=== PATIENT | female | born 1975 | race Caucasian/White ===

== ENCOUNTER 2018-01-24 16:19 | Emergency (ER) | payer SELFPAY ==
[~2018-01-24] VITALS: Ht 167.6 cm; Wt 59.1 kg
[~2018-01-24 16:19] MED LIST: ANTIDEPRESSANT; BACTRIM DS 8001 TAB PO; BENTYL 20MG TAB20 MG PO; CAMPRAL333 MG PO; CELEXA; CELEXA PO; CYMBALTA; DOXYCYCLINE 10100 MG PO; HYDROCODONE/APAP PO; HYDROMORPHONE HC2 MG PO; LEVAQUIN 750MG750 MG PO; METRONIDAZOLE500 MG PO; MIRALAX 255 GM255 GM PO; MOTRIN 800800 MG/TAB PO; NO HOME MEDICATIONS; OXYCONTIN 20MG20 MG PO; PEPCID 20MG TAB20 MG PO; PERCOCET 325 MG1 TA2 PO; PERCOCET 325 MG1 TAB PO; PHENERGAN 25 TA25 MG PO; PHENERGAN12.5 MG/SU RC; PHENERGAN25 MG; PHENERGAN25 MG RC; PHENERGAN25 MG/ML; PRILOSEC40 MG PO; PROMETHAZINE12.5 M5 PO; PROMETHAZINE25 MG RC; RANITIDINE HYD150 MG PO; REGLAN 10MG10 MG/TAB PO; ROXICODONE15 MG PO; SOME ANTIBIOTIC; ULTRAM 50MG TAB50 MG PO; XANAX0.5 MG PO; XARELTO10 MG PO; ZANTAC; ZANTAC 150150 MG PO; ZANTAC 7575 MG PO; ZOFRAN 4MG T4 MG/TAB PO; ZOFRAN 8MG8 MG PO; ZOFRAN ODT4 MG PO; [UNRECOGNIZED DRUG - REMARK]
[2018-01-24 16:22] VITALS: TEMP 97.9
[2018-01-24 17:11] LABS: BASO % 0.4 % (0.0-2.0); EOS # 0.1 (0.0-0.7); EOS % 0.7 % (0-4.0); GRAN # 6.7 (1.4-6.5); GRAN % 80.1 % (42.2-75.2); HEMOGLOBIN 11.4 g/dl (12.5-16.0); LYMPH # 1.1 (1.2-3.4); MEAN CELL VOLUME 85 fl (80.0-100.0); MEAN CORPUSCULAR HEMOGLOBIN 29 pg (27.0-31.0); MEAN CORPUSCULAR HGB CONC 34 g/dl (33.0-37.0); MEAN PLATELET VOLUME 9.2 fl (7.4-10.4); MONO # 0.4 (0.1-0.6); MONO % 4.8 % (1.7-9.3); PLATELET COUNT 237 K/mm3 (130-400); RED BLOOD COUNT 3.98 M/mm3 (4.10-5.30); REDCELL DISTRIBUTION WIDTH-CV 14.3 % (11.5-14.5)
[2018-01-24 17:18] LABS: ACETAMINOPHEN < 10 ug/mL (10-30); ALCOHOL(ethanol),MEDICAL < 10 mg/dL; SALICYLATE < 1.0 mg/dL
[2018-01-24 17:35] LABS: TRICYCLIC ANTIDEPRESS URINE NEGATIVE
[2018-01-24 18:09] LABS: ALBUMIN 3.9 gm/dL (3.5-5.0); BILIRUBIN,TOTAL 0.5 mg/dL (0.0-1.0); CALCIUM 9.5 mg/dL (8.4-10.2); CREATININE, serum 0.66 mg/dL (0.52-1.25); POTASSIUM 3.9 mmol/L (3.4-5.0); TOTAL PROTEIN 7.7 gm/dL (6.4-8.2)
[2018-01-24 18:58] VITALS: BP 117/89; PULSE 88
== END 2018-01-24 19:15 | disposition home or self-care (01) ==
LOC: COL.ER 16:19
PROVIDERS: Emergency Medicine
DX: T40.2X1A Poisoning by other opioids, accidental (unintentional), initial encounter (principal); F17.210 Nicotine dependence, cigarettes, uncomplicated
CPT/HCPCS: J1885; J2405; J7030

== ENCOUNTER 2018-03-10 20:36 | Emergency (ER) | payer SELFPAY ==
[~2018-03-10] VITALS: Ht 165.1 cm; Wt 63.6 kg
[2018-03-10 20:38] VITALS: BP 116/75; PULSE 104; TEMP 99.6
[2018-03-10] MEDS ORDERED: DOXYCYCLINE 10100 MG PO (21:20)
[2018-03-10] MEDS ORDERED: CEPHALEXIN500 M1 PO (21:20)
== END 2018-03-10 22:00 | disposition home or self-care (01) ==
LOC: COL.ER 20:36
DX: L03.116 Cellulitis of left lower limb (principal)

== ENCOUNTER 2019-12-17 13:09 | Emergency (ER) | payer SELFPAY ==
[~2019-12-17] VITALS: Ht 165.1 cm; Wt 63.6 kg
[~2019-12-17 13:09] MED LIST changes: +CEPHALEXIN500 M1 PO; +PROTONIX 40MG T40 MG PO
[2019-12-17 13:22] VITALS: BP 131/90
[2019-12-17 15:38] VITALS: PULSE 92; TEMP 97.8
== END 2019-12-17 15:40 | disposition home or self-care (01) ==
LOC: COL.ER 13:09
DX: S62.001A Unspecified fracture of navicular [scaphoid] bone of right wrist, initial encounter for closed fracture (principal); W01.0XXA Fall on same level from slipping, tripping and stumbling without subsequent striking against object, initial encounter; Y92.009 Unspecified place in unspecified non-institutional (private) residence as the place of occurrence of the external cause
CPT/HCPCS: Q4021

== ENCOUNTER 2021-02-14 11:35 | Emergency (ER) | payer SELFPAY ==
[~2021-02-14] VITALS: Ht 165.1 cm; Wt 72.7 kg
[2021-02-14 12:52] LABS: COLLECTION METHOD CLEAN CATCH
[2021-02-14 13:01] LABS: AMORPHOUS CRYSTAL Present /uL; MUCOUS Present /lpf; PH 5 (5-8); URINE APPEARANCE Cloudy; URINE BACTERIA None Seen /hpf; URINE BILIRUBIN Negative (NEGATIVE); URINE BLOOD Negative (NEGATIVE); URINE COLOR Amber; URINE GLUCOSE Negative (NEGATIVE); URINE KETONE Trace (NEGATIVE); URINE LEUKOCYTE ESTERASE Negative (NEGATIVE); URINE NITRATE Negative (NEGATIVE); URINE PROTEIN(semi-quant) 2+ (NEGATIVE); URINE UROBILINOGEN Negative (NEGATIVE)
[2021-02-14 13:32] LABS: BASO % 0.3 % (0.0-2.0); GRAN % 81.1 % (42.2-75.2); HEMATOCRIT 47.9 % (37.0-47.0); HEMOGLOBIN 16.3 g/dl (12.5-16.0); LYMPH # 1.6 (1.2-3.4); LYMPH % 10.8 % (20.0-51.0); MEAN CELL VOLUME 85 fl (80.0-100.0); MEAN CORPUSCULAR HEMOGLOBIN 29 pg (27.0-31.0); MEAN CORPUSCULAR HGB CONC 34 g/dl (33.0-37.0); MEAN PLATELET VOLUME 9.2 fl (7.4-10.4); MONO # 1.1 (0.1-0.6); MONO % 7.3 % (1.7-9.3); PLATELET COUNT 461 K/mm3 (130-400); RED BLOOD COUNT 5.67 M/mm3 (4.10-5.30); REDCELL DISTRIBUTION WIDTH-CV 14.5 % (11.5-14.5)
[2021-02-14 14:31] LABS: ALBUMIN 4.4 gm/dL (3.5-5.0); BILIRUBIN,TOTAL 0.5 mg/dL (0.0-1.0); CALCIUM 9.7 mg/dL (8.4-10.2); CREATININE, serum 0.71 (0.52-1.25); POTASSIUM 3.8 mmol/L (3.4-5.0); TOTAL PROTEIN 8.4 gm/dL (6.4-8.2)
[2021-02-14] MEDS ORDERED: AMOXICILLIN 8751 TAB PO (17:13)
[2021-02-14] MEDS ORDERED: ZOFRAN ODT4 MG PO (17:14)
[2021-02-14] MEDS ORDERED: NORCO 325 MG-51 TAB PO (17:14)
[2021-02-14 17:39] VITALS: BP 173/108; PULSE 64; TEMP 100.1
== END 2021-02-14 15:10 | disposition home or self-care (01) ==
LOC: COL.ER 11:35
PROVIDERS: Emergency Medicine
DX: K52.9 Noninfective gastroenteritis and colitis, unspecified (principal); D72.829 Elevated white blood cell count, unspecified; Z20.822 Contact with and (suspected) exposure to COVID-19; Z32.02 Encounter for pregnancy test, result negative
CPT/HCPCS: J1885; J2405; J3010; J7120; Q9967

== ENCOUNTER 2021-02-22 13:04 | Emergency (ER) | payer SELFPAY ==
[~2021-02-22] VITALS: Ht 167.6 cm; Wt 77.3 kg
[~2021-02-22 13:04] MED LIST changes: +AMOXICILLIN 8751 TAB PO; +NORCO 325 MG-51 TAB PO
[2021-02-22 13:20] VITALS: TEMP 98.7
[2021-02-22 14:56] LABS: BASO % 0.3 % (0.0-2.0); EOS % 0.1 % (0-4.0); GRAN % 82.3 % (42.2-75.2); HEMATOCRIT 47.5 % (37.0-47.0); HEMOGLOBIN 15.7 g/dl (12.5-16.0); LYMPH # 1.4 (1.2-3.4); MEAN CELL VOLUME 87 fl (80.0-100.0); MEAN CORPUSCULAR HEMOGLOBIN 29 pg (27.0-31.0); MEAN CORPUSCULAR HGB CONC 33 g/dl (33.0-37.0); MEAN PLATELET VOLUME 9.4 fl (7.4-10.4); MONO # 0.4 (0.1-0.6); MONO % 3.9 % (1.7-9.3); PLATELET COUNT 327 K/mm3 (130-400); RED BLOOD COUNT 5.48 M/mm3 (4.10-5.30); REDCELL DISTRIBUTION WIDTH-CV 14.2 % (11.5-14.5)
[2021-02-22 15:06] LABS: ALBUMIN 4.7 gm/dL (3.5-5.0); BILIRUBIN,TOTAL 0.5 mg/dL (0.0-1.0); CREATININE, serum 0.58 (0.52-1.25)
[2021-02-22] MEDS ORDERED: PERCOCET 325 MG1 TA2 PO (17:19)
[2021-02-22] MEDS ORDERED: PROTONIX 40MG T40 MG PO (17:19)
[2021-02-22] MEDS ORDERED: ZOFRAN ODT4 MG PO (17:19)
[2021-02-22 17:40] VITALS: BP 141/96; PULSE 91
== END 2021-02-22 17:45 | disposition home or self-care (01) ==
LOC: COL.ER 13:04
PROVIDERS: Personal Emergency Response Attendant
DX: R10.84 Generalized abdominal pain (principal); R11.2 Nausea with vomiting, unspecified; Z32.02 Encounter for pregnancy test, result negative
CPT/HCPCS: C9113; J1790; J2270; J2405; J2550; J7030

== ENCOUNTER 2022-01-19 11:06 | Observation (INO) | payer SELFPAY ==
[~2022-01-19] VITALS: Ht 165.1 cm; Wt 79.5 kg
[2022-01-19 12:30] LABS: BASO # 0.1 K/mm3 (0.0-0.2); BASO % 0.7 % (0.0-2.0); EOS % 0.1 % (0.0-4.0); GRAN # 5.8 K/mm3 (1.4-6.5); GRAN % 77.3 % (42.2-75.2); HEMATOCRIT 43.9 % (37.0-47.0); HEMOGLOBIN 15.3 g/dl (12.5-16.0); LYMPH # 1.3 K/mm3 (1.2-3.4); LYMPH % 17.1 % (20.0-51.0); MEAN CELL VOLUME 87 fl (80.0-100.0); MEAN CORPUSCULAR HEMOGLOBIN 30 pg (27-31); MEAN CORPUSCULAR HGB CONC 35 g/dl (33.0-37.0); MEAN PLATELET VOLUME 9.4 fl (7.4-10.4); MONO # 0.3 K/mm3 (0.1-0.6); MONO % 4.4 % (1.7-9.3); PLATELET COUNT 292 K/mm3 (130-400); RED BLOOD COUNT 5.05 M/mm3 (4.10-5.30); REDCELL DISTRIBUTION WIDTH-CV 14.2 % (11.5-14.5)
[2022-01-19 12:49] LABS: ALBUMIN 4.4 gm/dL (3.5-5.0); C-REACTIVE PROTEIN 0.54 mg/dL (0.00-0.50); CALCIUM 9.9 mg/dL (8.4-10.2); CREATININE, serum 0.83 mg/dL (0.57-1.11); POTASSIUM 3.5 mmol/L (3.5-4.5); TOTAL PROTEIN 9.2 gm/dL (6.2-8.1)
[2022-01-19 15:56] LABS: COLLECTION METHOD CLEAN CATCH
[2022-01-19 16:03] LABS: MUCOUS Present (NOT PRESENT); PH 8 (5-8); SQUAMOUS EPITHELIAL 0-2 /hpf (0-10); URINE APPEARANCE Clear (CLEAR/HAZY); URINE BACTERIA None Seen /hpf (NONE SEEN); URINE BILIRUBIN Negative (NEGATIVE); URINE BLOOD Negative (NEGATIVE); URINE COLOR Yellow (YELLOW); URINE GLUCOSE Negative (NEGATIVE); URINE KETONE 1+ (NEGATIVE); URINE LEUKOCYTE ESTERASE Negative (NEGATIVE); URINE NITRATE Negative (NEGATIVE); URINE PROTEIN(semi-quant) Negative (NEGATIVE); URINE RBC 0-2 /hpf (0-2); URINE UROBILINOGEN Negative (NEGATIVE)
[2022-01-19 16:18] LABS: TRICYCLIC ANTIDEPRESS URINE NEGATIVE
[2022-01-19 16:33] VITALS: BP 133/93; PULSE 101; TEMP 100.4
--- NOTE | 2022-01-19 18:55 | NUR ---
Patient admitted to room 353 from ED. Report recieved from CHRISTIANO Arora. Medication, pharmacy, and allergies reviewed. Fluids running as ordered. Patient c/o of abd pain but states that she is unsure if she can tolerate po medication. PRN zofran given. Patient hypertensive and tachy, will give prn BP medication per protocol. Night nurse aware. Call light in reach.
[2022-01-19 20:13] VITALS: BP 142/96; PULSE 99; TEMP 98.9
[2022-01-19 23:58] VITALS: BP 153/86; PULSE 90; TEMP 99.1
[2022-01-20 04:42] VITALS: BP 149/89; PULSE 84; TEMP 98.7
[2022-01-20 06:49] LABS: BASO % 0.3 % (0.0-2.0); GRAN # 9.7 K/mm3 (1.4-6.5); GRAN % 77.7 % (42.2-75.2); LYMPH # 1.8 K/mm3 (1.2-3.4); LYMPH % 14.2 % (20.0-51.0); MEAN CELL VOLUME 87 fl (80.0-100.0); MEAN CORPUSCULAR HGB CONC 35 g/dl (33.0-37.0); MEAN PLATELET VOLUME 9.3 fl (7.4-10.4); MONO # 0.9 K/mm3 (0.1-0.6); MONO % 7.4 % (1.7-9.3); PLATELET COUNT 307 K/mm3 (130-400); RED BLOOD COUNT 4.22 M/mm3 (4.10-5.30); REDCELL DISTRIBUTION WIDTH-CV 14.4 % (11.5-14.5)
[2022-01-20 06:53] LABS: HEMATOCRIT 36.8 % (37.0-47.0); HEMOGLOBIN 12.7 g/dl (12.5-16.0); MEAN CORPUSCULAR HEMOGLOBIN 30 pg (27-31)
[2022-01-20 07:10] LABS: CALCIUM 8.7 mg/dL (8.4-10.2); CREATININE, serum 0.7 mg/dL (0.57-1.11); MAGNESIUM 1.7 mg/dL (1.6-2.6)
[2022-01-20 07:13] LABS: POTASSIUM 2.9 mmol/L (3.5-4.5)
[2022-01-20 08:13] VITALS: BP 132/78; PULSE 94; TEMP 98.4
--- NOTE | 2022-01-20 10:39 | NUR ---
PT RESTING IN BED. MORNING MEDICATIONS GIVEN. SHIFT ASSESSMENT COMPLETED. PT REPORTS ABDOMINAL PAIN AND HEADACHE HAVE BOTH IMPROVED. WILL ADVANCE DIET TOLERATED. CONTINUING TO MONITOR.
[2022-01-20 12:14] VITALS: BP 124/79; PULSE 96; TEMP 98.4
--- NOTE | 2022-01-20 12:16 | NUR ---
Jordyn: No congregational preference Situation: Mandarin Chinese Teacher stopped by room on rounds Background: PT seemed content Assessment: PT appreciated visit Recommendation: Mandarin Chinese Teacher will follow up as needed
--- NOTE | 2022-01-20 14:39 | NUR ---
kiln worker met with patient to complete intake and discuss discharge plan. Patient reports that she lives at home with her friend Maxx ([phone]). Patient reports to being fully independent with her ADL's and does not utilize any DME or home oxygen. Patient reports to not having a PCP at this time. She utilizes [facility] for perscription needs and has trouble affording her medications. Patient states that she does not have a DPOA-HC. Education provided. Patient is not but does have 3 adult children : Nils Bautista, Ally Erickson ([phone]) and Cuba Ruiz. States Ally is the best contact. Patient is not currently seeking drug and alcohol treatment. 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 Local drug and alcohol resource list provided to the patient and educated her on the local AA options. Patient states that she did get an FAA at the time of admission and would like to apply for [facility]. Contact made with Lorraine financial counselor who states she will meet with the patient later today. Discharge plan: Home
[2022-01-20 16:23] VITALS: BP 107/71; PULSE 98; TEMP 98.5
[2022-01-20 20:12] VITALS: BP 105/73; PULSE 101; TEMP 98.5
[2022-01-21 00:23] VITALS: BP 117/77; PULSE 80; TEMP 98.3
[2022-01-21 04:10] VITALS: BP 119/74; PULSE 69; TEMP 98.3
--- NOTE | 2022-01-21 05:35 | NUR ---
RESTED THROUGH THE NIGHT WITHOUT INCIDENT. ANTICAPTES DC TODAY. NEEDS MET.
[2022-01-21 06:31] LABS: BASO # 0.1 K/mm3 (0.0-0.2); BASO % 1.2 % (0.0-2.0); EOS # 0.1 K/mm3 (0.0-0.7); EOS % 0.9 % (0.0-4.0); GRAN # 3.4 K/mm3 (1.4-6.5); GRAN % 49.7 % (42.2-75.2); HEMOGLOBIN 11.7 g/dl (12.5-16.0); LYMPH # 2.7 K/mm3 (1.2-3.4); LYMPH % 39.1 % (20.0-51.0); MEAN CELL VOLUME 91 fl (80.0-100.0); MEAN CORPUSCULAR HEMOGLOBIN 30 pg (27-31); MEAN CORPUSCULAR HGB CONC 33 g/dl (33.0-37.0); MEAN PLATELET VOLUME 9.4 fl (7.4-10.4); MONO # 0.6 K/mm3 (0.1-0.6); MONO % 8.5 % (1.7-9.3); PLATELET COUNT 267 K/mm3 (130-400); RED BLOOD COUNT 3.88 M/mm3 (4.10-5.30); REDCELL DISTRIBUTION WIDTH-CV 14.7 % (11.5-14.5)
[2022-01-21 06:38] LABS: HEMATOCRIT 35.4 % (37.0-47.0)
[2022-01-21 06:48] LABS: CALCIUM 8.7 mg/dL (8.4-10.2); CREATININE, serum 0.72 mg/dL (0.57-1.11); POTASSIUM 3.6 mmol/L (3.5-4.5)
[2022-01-21 06:58] LABS: MAGNESIUM 2.2 mg/dL (1.6-2.6)
[2022-01-21 07:22] VITALS: BP 142/80; PULSE 85; TEMP 98.2
--- NOTE | 2022-01-21 08:38 | NUR ---
PT SITTING UP IN BED, TOLERATED BREAKFAST WELL WITH NO NAUSEA. MORNING MEDICATIONS GIVEN. SHIFT ASSESSMENT COMPLETED. PT COMPLAINS OF ONLY MILD ABDOMINAL PAIN. SWELLING NOTED TO RUE, BELIEVE IT IS DUE TO IVF, INSTRUCTED TO KEEP ARM ELEVATED AND WE WILL MONITOR. IV SITE DOES NOT APPEAR INFILTRATED. WILL CONTINUE TO MONITOR.
[2022-01-21] MEDS ORDERED: ZESTRIL 10MG10 MG PO (09:45)
--- NOTE | 2022-01-21 10:14 | NUR ---
Appeals Manager met with patient who will discharge home today. SW offered to make patient an appointment with the [facility], however she declined. Patient was interested in [facility] contact information so LALO provided. Discharge Plan: Home
--- NOTE | 2022-01-21 10:28 | NUR ---
IV D/C. DISCHARGE INSTRUCTIONS GIVEN, ALL QUSTIONS ANSWERED. WILL ESCORT PT DOWN WITH PERSONAL BELONGINGS. WILL D/C FROM SYSTEM.
== END 2022-01-21 10:29 | disposition home or self-care (01) ==
LOC: COL.ER 11:06 → MEDICAL 16:02 → COL.ER 16:20 → MEDICAL 16:20
PROVIDERS: Family Medicine; Physician Assistant; ADMIT Internal Medicine
DX: R10.84 Generalized abdominal pain (principal); R11.2 Nausea with vomiting, unspecified; E87.6 Hypokalemia; E83.42 Hypomagnesemia; I16.0 Hypertensive urgency; R51.9 Headache, unspecified; F10.10 Alcohol abuse, uncomplicated; Z20.822 Contact with and (suspected) exposure to COVID-19
CPT/HCPCS: 99233-AI; 99239; C9113; G0378; J0360; J0780; J1200; J1956; J2270; J2405; J2550; J2765; J3475; J7030; J7120; Q9967

== ENCOUNTER 2022-01-27 13:34 | Emergency (ER) | payer SELFPAY ==
[~2022-01-27] VITALS: Ht 165.1 cm; Wt 79.5 kg
[~2022-01-27 13:34] MED LIST changes: +ZESTRIL 10MG10 MG PO
[2022-01-27 14:00] VITALS: PULSE 101; TEMP 98.2
[2022-01-27 15:48] LABS: BASO % 0.5 % (0.0-2.0); EOS % 0.1 % (0.0-4.0); GRAN # 6.8 K/mm3 (1.4-6.5); GRAN % 77.2 % (42.2-75.2); HEMATOCRIT 44.5 % (37.0-47.0); HEMOGLOBIN 15.3 g/dl (12.5-16.0); LYMPH # 1.4 K/mm3 (1.2-3.4); LYMPH % 15.6 % (20.0-51.0); MEAN CELL VOLUME 87 fl (80.0-100.0); MEAN CORPUSCULAR HEMOGLOBIN 30 pg (27-31); MEAN CORPUSCULAR HGB CONC 34 g/dl (33.0-37.0); MEAN PLATELET VOLUME 9.1 fl (7.4-10.4); MONO # 0.5 K/mm3 (0.1-0.6); MONO % 5.8 % (1.7-9.3); PLATELET COUNT 353 K/mm3 (130-400); RED BLOOD COUNT 5.11 M/mm3 (4.10-5.30); REDCELL DISTRIBUTION WIDTH-CV 13.9 % (11.5-14.5)
[2022-01-27 16:05] LABS: ALANINE AMINOTRANSFERASE 21 U/L (0-55); ALBUMIN 4.3 gm/dL (3.5-5.0); ALKALINE PHOSPHATASE 92 U/L (40-150); ANION GAP 14 mmol/L (7-16); AST,SGOT 20 U/L (5-34); BILIRUBIN,TOTAL 0.3 mg/dL (0.2-1.2); BLOOD UREA NITROGEN 5 mg/dL (7-19); CALCIUM 10.1 mg/dL (8.4-10.2); CARBON DIOXIDE 24 mmol/L (22-29); CHLORIDE 105 mmol/L (98-107); CREATININE, serum 0.78 mg/dL (0.57-1.11); GLUCOSE 113 mg/dL (70-99); LIPASE 25 U/L (8-78); SODIUM 143 mmol/L (136-145); TOTAL PROTEIN 8.9 gm/dL (6.2-8.1)
[2022-01-27 16:16] LABS: TROPONIN-I < 0.010 ng/mL (0.00-0.033)
[2022-01-27] MEDS ORDERED: ZESTRIL 10MG10 MG PO (16:47)
[2022-01-27 16:53] VITALS: BP 134/92
== END 2022-01-27 17:00 | disposition home or self-care (01) ==
LOC: COL.ER 13:34
PROVIDERS: Nurse Practitioner Primary Care
DX: I10 Essential (primary) hypertension (principal); R11.2 Nausea with vomiting, unspecified; Z20.822 Contact with and (suspected) exposure to COVID-19
CPT/HCPCS: J0595; J2405; J7030

== ENCOUNTER 2022-01-30 09:40 | Emergency (ER) | payer SELFPAY ==
[~2022-01-30] VITALS: Ht 165.1 cm; Wt 75.0 kg
[2022-01-30 09:48] VITALS: TEMP 98.1
[2022-01-30 11:37] LABS: BASO # 0.1 K/mm3 (0.0-0.2); BASO % 0.4 % (0.0-2.0); EOS % 0.1 % (0.0-4.0); GRAN % 72.4 % (42.2-75.2); HEMATOCRIT 42.1 % (37.0-47.0); HEMOGLOBIN 14.5 g/dl (12.5-16.0); LYMPH # 2.1 K/mm3 (1.2-3.4); MEAN CELL VOLUME 87 fl (80.0-100.0); MEAN CORPUSCULAR HEMOGLOBIN 30 pg (27-31); MEAN CORPUSCULAR HGB CONC 34 g/dl (33.0-37.0); MONO # 1.2 K/mm3 (0.1-0.6); MONO % 9.5 % (1.7-9.3); PLATELET COUNT 394 K/mm3 (130-400); RED BLOOD COUNT 4.84 M/mm3 (4.10-5.30); REDCELL DISTRIBUTION WIDTH-CV 13.7 % (11.5-14.5)
[2022-01-30 11:59] LABS: ALANINE AMINOTRANSFERASE 21 U/L (0-55); ALBUMIN 4.1 gm/dL (3.5-5.0); ALKALINE PHOSPHATASE 81 U/L (40-150); AST,SGOT 26 U/L (5-34); BILIRUBIN,TOTAL 0.6 mg/dL (0.2-1.2); BLOOD UREA NITROGEN 16 mg/dL (7-19); CALCIUM 9.7 mg/dL (8.4-10.2); CARBON DIOXIDE 25 mmol/L (22-29); GLUCOSE 111 mg/dL (70-99); LIPASE 22 U/L (8-78); TOTAL PROTEIN 8.4 gm/dL (6.2-8.1)
[2022-01-30 12:10] LABS: ANION GAP 17 mmol/L (7-16); CHLORIDE 98 mmol/L (98-107); SODIUM 140 mmol/L (136-145)
[2022-01-30 12:27] LABS: ALCOHOL(ethanol),MEDICAL < 10 mg/dL (0-10)
[2022-01-30 14:00] VITALS: BP 102/85; PULSE 101
[2022-01-30] MEDS ORDERED: K-TAB20 PO (14:17)
[2022-01-30] MEDS ORDERED: PHENERGAN 25 TA25 MG PO (14:17)
[2022-01-30] MEDS ORDERED: PHENERGAN25 MG RC (14:17)
== END 2022-01-30 14:41 | disposition home or self-care (01) ==
LOC: COL.ER 09:40
PROVIDERS: Emergency Medicine
DX: R11.2 Nausea with vomiting, unspecified (principal); R10.84 Generalized abdominal pain; E87.6 Hypokalemia; F12.90 Cannabis use, unspecified, uncomplicated; D72.829 Elevated white blood cell count, unspecified; Z87.19 Personal history of other diseases of the digestive system
CPT/HCPCS: J0780; J1790; J1885; J3010; J3475; J7030

== ENCOUNTER 2022-02-01 12:53 | Emergency (ER) | payer SELFPAY ==
[~2022-02-01] VITALS: Ht 165 cm; Wt 72.7 kg
[~2022-02-01 12:53] MED LIST changes: +K-TAB20 PO
[2022-02-01 13:02] VITALS: TEMP 98.1
[2022-02-01 13:55] LABS: BASO # 0.1 K/mm3 (0.0-0.2); BASO % 0.5 % (0.0-2.0); EOS % 0.1 % (0.0-4.0); GRAN # 10.7 K/mm3 (1.4-6.5); GRAN % 75.7 % (42.2-75.2); HEMATOCRIT 45.1 % (37.0-47.0); HEMOGLOBIN 15.9 g/dl (12.5-16.0); LYMPH # 2.3 K/mm3 (1.2-3.4); LYMPH % 16.2 % (20.0-51.0); MEAN CELL VOLUME 85 fl (80.0-100.0); MEAN CORPUSCULAR HEMOGLOBIN 30 pg (27-31); MEAN CORPUSCULAR HGB CONC 35 g/dl (33.0-37.0); MEAN PLATELET VOLUME 9.5 fl (7.4-10.4); PLATELET COUNT 423 K/mm3 (130-400); REDCELL DISTRIBUTION WIDTH-CV 13.5 % (11.5-14.5)
[2022-02-01 14:11] LABS: ALBUMIN 4.5 gm/dL (3.5-5.0); BILIRUBIN,TOTAL 1.1 mg/dL (0.2-1.2); C-REACTIVE PROTEIN 0.84 mg/dL (0.00-0.50); CALCIUM 10.3 mg/dL (8.4-10.2); CREATININE, serum 0.88 mg/dL (0.57-1.11); POTASSIUM 3.2 mmol/L (3.5-4.5); TOTAL PROTEIN 9.2 gm/dL (6.2-8.1)
[2022-02-01 15:57] LABS: COLLECTION METHOD CLEAN CATCH
[2022-02-01 16:03] VITALS: BP 122/93
[2022-02-01 16:04] LABS: MUCOUS Present (NOT PRESENT); PH 5 (5-8); URINE APPEARANCE Hazy (CLEAR/HAZY); URINE BACTERIA None Seen /hpf (NONE SEEN); URINE BILIRUBIN Negative (NEGATIVE); URINE BLOOD Negative (NEGATIVE); URINE COLOR Amber (YELLOW); URINE GLUCOSE Negative (NEGATIVE); URINE KETONE 1+ (NEGATIVE); URINE LEUKOCYTE ESTERASE Negative (NEGATIVE); URINE NITRATE Negative (NEGATIVE); URINE PROTEIN(semi-quant) 1+ (NEGATIVE); URINE UROBILINOGEN >=4.0 (NEGATIVE)
[2022-02-01 16:28] VITALS: PULSE 96
[2022-02-01] MEDS ORDERED: ZOFRAN ODT4 MG PO (16:41)
[2022-02-01] MEDS ORDERED: NORCO 325 MG-51 TAB PO (16:41)
== END 2022-02-01 17:00 | disposition home or self-care (01) ==
LOC: COL.ER 12:53
PROVIDERS: Nurse Practitioner
DX: R10.11 Right upper quadrant pain (principal); R10.12 Left upper quadrant pain; D72.829 Elevated white blood cell count, unspecified
CPT/HCPCS: J1790; J1885; J2550; J3010; J7030

== ENCOUNTER 2022-02-02 18:38 | Emergency (ER) | payer SELFPAY ==
[~2022-02-02] VITALS: Ht 165.1 cm; Wt 71.8 kg
[2022-02-02 18:49] VITALS: TEMP 98.1
[2022-02-02 19:48] LABS: BASO # 0.1 K/mm3 (0.0-0.2); BASO % 0.6 % (0.0-2.0); EOS % 0.1 % (0.0-4.0); GRAN # 10.7 K/mm3 (1.4-6.5); GRAN % 77.8 % (42.2-75.2); HEMATOCRIT 42.9 % (37.0-47.0); HEMOGLOBIN 15.4 g/dl (12.5-16.0); LYMPH % 14.4 % (20.0-51.0); MEAN CELL VOLUME 84 fl (80.0-100.0); MEAN CORPUSCULAR HEMOGLOBIN 30 pg (27-31); MEAN CORPUSCULAR HGB CONC 36 g/dl (33.0-37.0); MEAN PLATELET VOLUME 10.7 fl (7.4-10.4); MONO # 0.9 K/mm3 (0.1-0.6); MONO % 6.5 % (1.7-9.3); PLATELET COUNT 480 K/mm3 (130-400); RED BLOOD COUNT 5.13 M/mm3 (4.10-5.30); REDCELL DISTRIBUTION WIDTH-CV 13.5 % (11.5-14.5)
[2022-02-02 21:48] LABS: ALBUMIN 3.9 gm/dL (3.5-5.0); BILIRUBIN,TOTAL 0.9 mg/dL (0.2-1.2); CALCIUM 9.3 mg/dL (8.4-10.2); CREATININE, serum 0.78 mg/dL (0.57-1.11); TOTAL PROTEIN 7.9 gm/dL (6.2-8.1)
[2022-02-03] MEDS ORDERED: CIPRO 500MG TA500 MG PO (00:04)
[2022-02-03 00:42] VITALS: BP 130/97; PULSE 105
== END 2022-02-03 00:42 | disposition home or self-care (01) ==
LOC: COL.ER 18:38
PROVIDERS: Personal Emergency Response Attendant; Physician Assistant
DX: K52.9 Noninfective gastroenteritis and colitis, unspecified (principal); G89.29 Other chronic pain; Z86.59 Personal history of other mental and behavioral disorders
CPT/HCPCS: J0500; J1790; J1885; J2060; J2550; J7030; Q9967

== ENCOUNTER 2022-02-25 09:51 | Emergency (ER) | payer SELFPAY ==
[~2022-02-25] VITALS: Ht 165.1 cm; Wt 75.0 kg
[~2022-02-25 09:51] MED LIST changes: +ATIVAN 0.50.5 MG/TAB PO; +CIPRO 500MG TA500 MG PO
[2022-02-25 10:09] VITALS: TEMP 97.9
[2022-02-25 11:37] LABS: COLLECTION METHOD CLEAN CATCH
[2022-02-25 11:55] LABS: BASO % 0.4 % (0.0-2.0); EOS # 0.1 K/mm3 (0.0-0.7); EOS % 0.7 % (0.0-4.0); GRAN # 5.6 K/mm3 (1.4-6.5); HEMATOCRIT 48.5 % (37.0-47.0); HEMOGLOBIN 16.3 g/dl (12.5-16.0); LYMPH # 1.8 K/mm3 (1.2-3.4); LYMPH % 22.3 % (20.0-51.0); MEAN CELL VOLUME 88 fl (80.0-100.0); MEAN CORPUSCULAR HEMOGLOBIN 30 pg (27-31); MEAN CORPUSCULAR HGB CONC 34 g/dl (33.0-37.0); MEAN PLATELET VOLUME 9.3 fl (7.4-10.4); MONO # 0.5 K/mm3 (0.1-0.6); MONO % 6.1 % (1.7-9.3); PLATELET COUNT 289 K/mm3 (130-400); RED BLOOD COUNT 5.51 M/mm3 (4.10-5.30); REDCELL DISTRIBUTION WIDTH-CV 13.8 % (11.5-14.5)
[2022-02-25 12:03] LABS: MUCOUS Present (NOT PRESENT); URINE BACTERIA None Seen /hpf (NONE SEEN); URINE RBC 0-2 /hpf (0-2)
[2022-02-25 12:07] LABS: TRICYCLIC ANTIDEPRESS URINE NEGATIVE
[2022-02-25 12:08] LABS: ALANINE AMINOTRANSFERASE 21 U/L (0-55); ALKALINE PHOSPHATASE 84 U/L (40-150); ANION GAP 16 mmol/L (7-16); AST,SGOT 17 U/L (5-34); BILIRUBIN,TOTAL 0.4 mg/dL (0.2-1.2); BLOOD UREA NITROGEN 6 mg/dL (7-19); CALCIUM 10.2 mg/dL (8.4-10.2); CARBON DIOXIDE 23 mmol/L (22-29); CHLORIDE 103 mmol/L (98-107); CREATININE, serum 0.76 mg/dL (0.57-1.11); GLUCOSE 98 mg/dL (70-99); LIPASE 22 U/L (8-78); SODIUM 142 mmol/L (136-145); TOTAL PROTEIN 8.3 gm/dL (6.2-8.1)
[2022-02-25 12:09] LABS: PH 9 (5-8); URINE APPEARANCE Hazy (CLEAR/HAZY); URINE BILIRUBIN Negative (NEGATIVE); URINE BLOOD Negative (NEGATIVE); URINE COLOR Yellow (YELLOW); URINE GLUCOSE Negative (NEGATIVE); URINE KETONE Negative (NEGATIVE); URINE LEUKOCYTE ESTERASE Negative (NEGATIVE); URINE NITRATE Negative (NEGATIVE); URINE PROTEIN(semi-quant) Negative (NEGATIVE); URINE UROBILINOGEN Negative (NEGATIVE)
[2022-02-25 12:12] LABS: ALCOHOL(ethanol),MEDICAL < 10 mg/dL (0-10)
[2022-02-25] MEDS ORDERED: ZOFRAN ODT4 MG PO (14:34)
[2022-02-25 14:59] VITALS: BP 121/91; PULSE 88
== END 2022-02-25 15:01 | disposition home or self-care (01) ==
LOC: COL.ER 09:51
PROVIDERS: Emergency Medicine
DX: R10.84 Generalized abdominal pain (principal); R11.2 Nausea with vomiting, unspecified; Z32.02 Encounter for pregnancy test, result negative
CPT/HCPCS: J1200; J1790; J1885; J2550

== ENCOUNTER 2022-03-24 06:57 | Emergency (ER) | payer SELFPAY ==
[~2022-03-24] VITALS: Ht 165.1 cm; Wt 75.0 kg
[2022-03-24 07:07] VITALS: TEMP 98.2
[2022-03-24 07:21] LABS: COLLECTION METHOD CLEAN CATCH
[2022-03-24 07:32] LABS: BASO # 0.1 K/mm3 (0.0-0.2); BASO % 0.6 % (0.0-2.0); GRAN # 8.4 K/mm3 (1.4-6.5); HEMATOCRIT 44.8 % (37.0-47.0); HEMOGLOBIN 15.4 g/dl (12.5-16.0); LYMPH # 1.3 K/mm3 (1.2-3.4); LYMPH % 13.1 % (20.0-51.0); MEAN CELL VOLUME 86 fl (80.0-100.0); MEAN CORPUSCULAR HEMOGLOBIN 30 pg (27-31); MEAN CORPUSCULAR HGB CONC 34 g/dl (33.0-37.0); MEAN PLATELET VOLUME 9.1 fl (7.4-10.4); MONO # 0.4 K/mm3 (0.1-0.6); MONO % 3.9 % (1.7-9.3); MUCOUS Present (NOT PRESENT); PLATELET COUNT 333 K/mm3 (130-400); RED BLOOD COUNT 5.21 M/mm3 (4.10-5.30); REDCELL DISTRIBUTION WIDTH-CV 14.1 % (11.5-14.5); URINE BACTERIA None Seen /hpf (NONE SEEN)
[2022-03-24 07:33] LABS: PH 7 (5-8); URINE APPEARANCE Hazy (CLEAR/HAZY); URINE COLOR Yellow (YELLOW); URINE GLUCOSE Negative (NEGATIVE); URINE PROTEIN(semi-quant) 1+ (NEGATIVE)
[2022-03-24 07:34] LABS: URINE BLOOD Negative (NEGATIVE); URINE KETONE Negative (NEGATIVE); URINE NITRATE Negative (NEGATIVE); URINE UROBILINOGEN Negative (NEGATIVE)
[2022-03-24 07:43] LABS: ALBUMIN 4.5 gm/dL (3.5-5.0); BILIRUBIN,TOTAL 0.7 mg/dL (0.2-1.2); CALCIUM 10.1 mg/dL (8.4-10.2); CREATININE, serum 0.84 mg/dL (0.57-1.11); POTASSIUM 3.8 mmol/L (3.5-4.5)
--- NOTE | 2022-03-24 08:55 | NUR ---
Raegan ALVARADO consulted with this Wiener Packer, re: ED overutilization and possible resources for primary care. Wiener Packer reviewed patint chart noting this is patient's 10th ED visit since January of this year. LALO Howell, met with patient on 01/19, and recommended a referral to [facility] offering to assist her with referral and place direct contact to them on her behalf; patient declined. She remains self-pay and EMR indicates no PCP. Wiener Packer met with patient; patient presents alert and oriented, and appears to be in some distress stating she is having pain and nauseau, but is willing to talk. She confirms EMR record of historical referral to [facility], and again declines referral/support. She states she does not like to go there, has been there before "many years ago" but cannot remember why she didn't like it, continuing to decline a referral despite encouragement offered. She states she doesn't really want to talk right now, but with very gentle encouragement, she accepts information offered for financial support. She is educated on patient financial assistance application and accepts, as well as a referral to the patient financial services rep to assist her in the Medicaid application process as she states she is in process of applying. She does accept a list of alternative area primary care physicians/clinics, and encouraged to contact to inquire about their services and self-pay for options. She is educated on the ability for primary care to potentially get ahead of her stomach issues and help her best control her pain before it starts. She thanks this Wiener Packer; Raegan ALVARADO is updated. *Discharge plan to home with referral for financial patient advocate follow up to assist in Medicaid application as well as referrals for PCP options and financial assistance application* *Patient continues to decline a referral to [facility]* Wiener Packer remains available as needed. Referral to Patient Calender Tender Lorraine completed this date.
[2022-03-24] MEDS ORDERED: PROMETHAZINE12.5 M5 PO (09:09)
[2022-03-24 09:25] VITALS: BP 154/90; PULSE 99
== END 2022-03-24 09:25 | disposition home or self-care (01) ==
LOC: COL.ER 06:57
PROVIDERS: Emergency Medicine
DX: R11.2 Nausea with vomiting, unspecified (principal); R74.01 Elevation of levels of liver transaminase levels
CPT/HCPCS: J1790; J1885; J2550; J7030